=== PATIENT | male | born 1950 | race Caucasian/White ===

== ENCOUNTER 2019-09-03 14:05 | Emergency (ER) | payer MEDICARE ==
--- NOTE | 2019-09-03 14:28 | EDM.PDOC ---
ED HPI GENERAL MEDICAL PROBLEM - General Chief Complaint: Cardiovascular Problem Stated Complaint: CHEST PAIN BURNING FEELING Time Seen by Provider: 09/03/19 14:42 Source of Information: Reports: Patient, RN Notes Reviewed History Limitations: Reports: No Limitations - History of Present Illness INITIAL COMMENTS - FREE TEXT/NARRATIVE: 68-year-old gentleman presents emergency department a complaint of chest pain, he states the chest pain started about 9 this morning he describes as a burning sensation on the left side of his chest does not really have any shortness of breath no nausea vomiting no diaphoresis he has no heart history denies any trauma he did receive a shingles vaccine Left Chest Pain Score (Numeric/FACES): 5 - Related Data Allergies Allergy/AdvReac Type Severity Reaction Status Date / Time No Known Allergies Allergy Verified 09/03/19 14:23 Home Meds: Home Meds atorvaSTATin Calcium [Lipitor] 40 mg PO DAILY 09/03/19 [History] Past Medical History Cardiovascular History: Reports: High Cholesterol Social & Family History - Tobacco Use Smoking Status *Q: Never Smoker ED ROS GENERAL - Review of Systems Review Of Systems: See Below Constitutional: Reports: No Symptoms HEENT: Reports: No Symptoms Respiratory: Denies: Shortness of Breath Cardiovascular: Reports: Chest Pain GI/Abdominal: Reports: No Symptoms ED EXAM, GENERAL - Physical Exam Exam: See Below Exam Limited By: No Limitations General Appearance: Alert, WD/WN, No Apparent Distress Head: Atraumatic, Normocephalic Neck: Normal Inspection, Supple, Non-Tender, Full Range of Motion Respiratory/Chest: No Respiratory Distress, Lungs Clear, Normal Breath Sounds, No Accessory Muscle Use, Chest Non-Tender Cardiovascular: Regular Rate, Rhythm, No Murmur GI/Abdominal: Soft, Non-Tender Extremities: No Pedal Edema Course - Vital Signs Last Recorded V/S: Last Vital Signs Temp 98.3 F 09/03/19 14:34 Pulse 96 09/03/19 14:34 Resp 18 09/03/19 14:34 BP 156/75 H 09/03/19 14:46 Pulse Ox 98 09/03/19 14:34 - Orders/Labs/Meds Orders: Active Orders 24 hr Category Date Time Status Cardiac Monitoring [RC] .As Directed Care 09/03/19 14:41 Active Cardiac Monitoring [RC] STAT Care 09/03/19 15:21 Ordered Communication Order [RC] Per Unit Routine Care 09/03/19 15:21 Ordered EKG Documentation Completion [RC] ASDIRECTED Care 09/03/19 14:42 Active Peripheral IV Care [RC] . DIRECTED Care 09/03/19 14:42 Active Chest 1V Frontal [CR] Stat Exams 09/03/19 14:42 Taken INR,PT,PROTHROMBIN TIME [COAG] Stat Lab 09/03/19 15:21 Ordered PTT,PARTIAL THROMBOPLSTIN TIME [COAG] Stat Lab 09/03/19 15:21 Ordered Heparin Sodium/D5W [Heparin 25,000 Units in D5W 500 ML] Med 09/03/19 15:30 Ordered 25,000 units in 500 ml IV TITRATE Nitroglycerin [Nitrostat] Med 09/03/19 14:41 Active 0.4 mg SL Q5M PRN Sodium Chloride 0.9% [Saline Flush] Med 09/03/19 14:41 Active 10 ml FLUSH ASDIRECTED PRN Peripheral IV Insertion Adult [OM.PC] Stat Oth 09/03/19 14:41 Ordered Saline Lock Insert [OM.PC] Stat Oth 09/03/19 14:41 Ordered EKG 12 Lead [EK] Stat Ther 09/03/19 14:41 Ordered Medication Orders Heparin Sodium/Dextrose (Heparin 25,000 Units In D5w 500 Ml) 25,000 units in 500 mls @ 19.032 mls/hr IV TITRATE DERICK; Protocol Nitroglycerin (Nitrostat) 0.4 mg SL Q5M PRN PRN Reason: Chest Pain Stop: 09/04/19 14:41 Last Admin: 09/03/19 14:46 Dose: 0.4 mg Sodium Chloride (Saline Flush) 10 ml FLUSH ASDIRECTED PRN PRN Reason: Keep Vein Open Last Admin: 09/03/19 14:46 Dose: 10 ml Labs: Laboratory Tests 09/03/19 09/03/19 09/03/19 Range/Units 14:33 14:33 14:33 WBC 12.4 H (4.5-11.0) K/uL RBC 5.38 (4.30-5.90) M/uL Hgb 16.5 H (12.0-15.0) g/dL Hct 48.0 (40.0-54.0) % MCV 89 (80-98) fL MCH 31 (27-31) pg MCHC 34 (32-36) % Plt Count 229 (150-400) K/uL Neut % (Auto) 82 H (36-66) % Lymph % (Auto) 13 L (24-44) % [place] % (Auto) 5 (2-6) % Eos % (Auto) 0 L (2-4) % Baso % (Auto) 1 (0-1) % D-Dimer, Quantitative 264 (0.0-400.0) ng/mL Sodium 133 L (140-148) mmol/L Potassium 4.0 (3.6-5.2) mmol/L Chloride 96 L (100-108) mmol/L Carbon Dioxide 28 (21-32) mmol/L Anion Gap 13.0 (5.0-14.0) mmol/L BUN 16 (7-18) mg/dL Creatinine 1.3 (0.8-1.3) mg/dL Est Cr Clr Drug Dosing 53.35 mL/min Estimated GFR (MDRD) 55 L (>60) Glucose 354 H (74-106) mg/dL Calcium 9.3 (8.5-10.1) mg/dL Total Bilirubin 0.5 (0.2-1.0) mg/dL AST 33 (15-37) U/L ALT 55 (12-78) U/L Alkaline Phosphatase 69 (46-116) U/L Troponin I 0.638 H* (0.000-0.056) ng/mL Total Protein 7.9 (6.4-8.2) g/dL Albumin 4.1 (3.4-5.0) g/dL Globulin 3.8 H (2.3-3.5) g/dL Albumin/Globulin Ratio 1.1 L (1.2-2.2) Meds: Medications Generic Name Dose Route Start Last Admin Trade Name Freq PRN Reason Stop Dose Admin Heparin Sodium/Dextrose 25,000 units in 500 mls @ 19.032 mls/hr 09/03/19 15: 30 Heparin 25,000 Units In D5w 500 Ml IV TITRATE DERICK Protocol 12 UNITS/KG/HR Nitroglycerin 0.4 mg 09/03/19 14:41 09/03/19 14:46 Nitrostat SL 09/04/19 14:41 0.4 mg Q5M PRN Administration Chest Pain Sodium Chloride 10 ml 09/03/19 14:41 09/03/19 14:46 Saline Flush FLUSH 10 ml ASDIRECTED PRN Administration Keep Vein Open Discontinued Medications Generic Name Dose Route Start Last Admin Trade Name Freq PRN Reason Stop Dose Admin Aspirin 324 mg 09/03/19 14:41 09/03/19 14:46 Aspirin PO 09/03/19 14:42 324 mg ONETIME ONE Administration Heparin Sodium (Porcine) 4,000 units 09/03/19 15:21 09/03/19 15:29 Heparin Sodium IVPUSH 09/03/19 15:22 4,000 units ONETIME ONE Administration Ticagrelor 180 mg 09/03/19 15:21 Brilinta PO 09/03/19 15:22 ONETIME ONE Departure - Departure Time of Disposition: 15:36 Disposition: DC/Tfer to Acute Hospital 02 Reason for Transfer *Q: Primary PCI Indicated Condition: Fair Clinical Impression: Non-ST elevation myocardial infarction (NSTEMI) Referrals: Boogie Watts MD [Primary Care Provider] - Forms: ED Department Discharge Sepsis Event Note - Focused Exam Vital Signs: Vital Signs Temp Pulse Resp BP BP Pulse Ox 09/03/19 14:46 156/75 H 09/03/19 14:34 98.3 F 96 18 167/73 H 98 09/03/19 14:26 98.3 F 96 18 167/73 H 98 Date Exam was Performed: 09/03/19 Time Exam was Performed: 15:33 - My Orders Last 24 Hours: My Active Orders 09/03/19 14:41 Cardiac Monitoring [RC] .As Directed Nitroglycerin [Nitrostat] 0.4 mg SL Q5M PRN Sodium Chloride 0.9% [Saline Flush] 10 ml FLUSH ASDIRECTED PRN Peripheral IV Insertion Adult [OM.PC] Stat Saline Lock Insert [OM.PC] Stat EKG 12 Lead [EK] Stat 09/03/19 14:42 EKG Documentation Completion [RC] ASDIRECTED Peripheral IV Care [RC] . DIRECTED Chest 1V Frontal [CR] Stat 09/03/19 15:21 Cardiac Monitoring [RC] STAT Communication Order [RC] Per Unit Routine INR,PT,PROTHROMBIN TIME [COAG] Stat PTT,PARTIAL THROMBOPLSTIN TIME [COAG] Stat 09/03/19 15:30 Heparin Sodium/D5W [Heparin 25,000 Units in D5W 500 ML] 25,000 units in 500 ml IV TITRATE - Assessment/Plan Last 24 Hours: My Active Orders 09/03/19 14:41 Cardiac Monitoring [RC] .As Directed Nitroglycerin [Nitrostat] 0.4 mg SL Q5M PRN Sodium Chloride 0.9% [Saline Flush] 10 ml FLUSH ASDIRECTED PRN Peripheral IV Insertion Adult [OM.PC] Stat Saline Lock Insert [OM.PC] Stat EKG 12 Lead [EK] Stat 09/03/19 14:42 EKG Documentation Completion [RC] ASDIRECTED Peripheral IV Care [RC] . DIRECTED Chest 1V Frontal [CR] Stat 09/03/19 15:21 Cardiac Monitoring [RC] STAT Communication Order [RC] Per Unit Routine INR,PT,PROTHROMBIN TIME [COAG] Stat PTT,PARTIAL THROMBOPLSTIN TIME [COAG] Stat 09/03/19 15:30 Heparin Sodium/D5W [Heparin 25,000 Units in D5W 500 ML] 25,000 units in 500 ml IV TITRATE Plan: Assessment Acuity = acute Site and laterality = non-ST elevation myocardial infarction Etiology = probable underlying coronary artery disease with undiagnosed diabetes mellitus type 2 Manifestations = none Location of injury = Home Lab values = WBC elevated 12.4 consistent with leukocytosis, sodium low at 133 consistent with hyponatremia troponin elevated 0.638 consistent with non-ST elevation myocardial infarction glucose elevated 354 consistent hyperglycemia undiagnosed diabetes mellitus type 2 d-dimer normal at 264 chest x-ray reveals no acute process EKG demonstrates a sinus rhythm there is no ST elevations or depressions no T wave inversions Plan Call discussed case Dr. Rivers emergency room physician [facility] he kindly accepted the patient at 1530 thus far he has received 4 chewable aspirin baby, 1 nitro sublingual, 180 mg Brilinta, 4000 unit heparin bolus followed by heparin drip remains pain-free at this time will be transported via EMS ground This note was dictated using [employer]pper voice recognition software please call with any questions on syntax or grammar.
[2019-09-03] MEDS ORDERED: Aspirin 81 MG Tab.Chew PO ONE (14:41)
[2019-09-03] MEDS ORDERED: Nitroglycerin 0.4 MG Tab.SL SL PRN (14:41)
[2019-09-03] MEDS ORDERED: Sodium Chloride 0.9% 10 ML Syringe FLUSH PRN (14:41)
[2019-09-03] MEDS ORDERED: Ticagrelor 90 MG Tab PO ONE (15:21)
[2019-09-03] MEDS ORDERED: Heparin Sodium 5,000 Units/ML Vial IVPUSH ONE (15:21)
[2019-09-03] MEDS ORDERED: Heparin Sodium/D5W 25,000 UNITS/500 ML BAG IV SCH (15:30)
--- NOTE | 2019-09-04 09:58 | CR ---
CHEST: Portable 09/03/2019 3:06 PM CLINICAL HISTORY:Chest pain COMPARISON:None FINDINGS: The heart size, pulmonary vascularity and hilar structures are normal. No infiltrate effusion or pneumothorax is seen. There are atherosclerotic changes in the aorta.. Some mild interstitial prominence which is likely chronic. IMPRESSION: No acute cardiopulmonary process.
== END 2019-09-03 16:08 ==
LOC: JP.ED 14:05
DX: I21.4 Non-ST elevation (NSTEMI) myocardial infarction (principal); E78.00 Pure hypercholesterolemia, unspecified; Z79.899 Other long term (current) drug therapy
CPT/HCPCS: 36415; 71045; 80053; 84484; 85025; 85379; 85610; 85730; 93005; 93010; 96365; 99285; A9270; J1644

== ENCOUNTER 2020-08-01 09:42 | Emergency (ER) | payer MEDICARE ==
[2020-08-01] MEDS ORDERED: Nitroglycerin 0.4 MG Tab.SL SL ONE (09:51)
[2020-08-01] MEDS ORDERED: Aspirin 81 MG Tab.Chew PO ONE (09:51)
--- NOTE | 2020-08-01 10:00 | EDM.PDOC ---
ED HPI GENERAL MEDICAL PROBLEM - General Chief Complaint: Chest Pain Stated Complaint: CHEST PAIN Time Seen by Provider: 08/01/20 09:45 Source of Information: Reports: Patient History Limitations: Reports: No Limitations - History of Present Illness INITIAL COMMENTS - FREE TEXT/NARRATIVE: 69-year-old male has had subtle left-sided burning in his chest for the last 6 hours. Woke with this discomfort around 4 AM, mild diaphoresis but no shortness of breath, no nausea, but the pain has been persistent for the past 6 hours so he wanted it checked. He had bypass grafting less than 1 year ago. He still is having a small amount of burning sensation, it does not get worse with movement or breathing. No abdominal pain, peripheral edema or recent trauma. No cough or fever. Onset: Unknown/Unsure (Woke with symptoms at 4 AM) Duration: Hour(s): (At least 6 hours) Location: Reports: Chest (Left-sided) Improves with: Reports: None Worsens with: Reports: None Associated Symptoms: Reports: Diaphoresis (Some diaphoresis initially) Left Cheek Pain Score (Numeric/FACES): 3 - Related Data Allergies Allergy/AdvReac Type Severity Reaction Status Date / Time No Known Allergies Allergy Verified 08/01/20 09:50 Home Meds: Home Meds Aspirin 81 mg PO DAILY 08/01/20 [History] Clopidogrel [Plavix] 75 mg PO DAILY 08/01/20 [History] Ezetimibe 10 mg PO DAILY 08/01/20 [History] Metoprolol Tartrate [Lopressor] 50 mg PO BID 08/01/20 [History] atorvaSTATin [Lipitor] 80 mg PO BEDTIME 08/01/20 [History] lisinopriL [Lisinopril] 5 mg PO DAILY 08/01/20 [History] metFORMIN [Glucophage XR] 500 mg PO BIDMEALS 08/01/20 [History] Past Medical History HEENT History: Reports: Impaired Vision Cardiovascular History: Reports: High Cholesterol Musculoskeletal History: Reports: None Dermatologic History: Reports: Psoriasis - Infectious Disease History Infectious Disease History: Reports: Chicken Pox, Measles - Past Surgical History Head Surgeries/Procedures: Reports: None HEENT Surgical History: Reports: None Cardiovascular Surgical History: Reports: None Endocrine Surgical History: Reports: None Musculoskeletal Surgical History: Reports: Other (See Below) Dermatological Surgical History: Reports: None Social & Family History - Caffeine Use Caffeine Use: Reports: Coffee ED ROS GENERAL - Review of Systems Review Of Systems: See Below Constitutional: Denies: Fever, Chills, Malaise HEENT: Reports: No Symptoms Respiratory: Denies: Shortness of Breath Cardiovascular: Reports: Chest Pain (Burning sensation in the left chest). Denies: Palpitations GI/Abdominal: Reports: No Symptoms : Reports: No Symptoms Skin: Reports: Diaphoresis Neurological: Reports: No Symptoms Psychiatric: Reports: No Symptoms ED EXAM, GENERAL - Physical Exam Exam: See Below Exam Limited By: No Limitations General Appearance: Alert, No Apparent Distress Head: Atraumatic Respiratory/Chest: No Respiratory Distress, Lungs Clear, Other (I cannot reproduce the pain with palpation of the chest wall) Cardiovascular: Regular Rate, Rhythm, No Murmur. No: Extra Beats GI/Abdominal: Soft, Non-Tender Extremities: Normal Inspection. No: Pedal Edema Neurological: Alert, Oriented Psychiatric: Normal Affect, Normal Mood Skin Exam: Warm, Dry. No: Rash (No rash over painful area) #1 Interpretation EKG Date: 08/01/20 Time: 09:45 Rhythm: NSR P-Wave: Present QRS: Normal ST-T: Elevated (There is very minimal ST elevation in leads I and V2, other leads are normal. This was compared to an EKG done last year prior to his surgery and it is slightly different.) Comparison: Change From Previous EKG Course - Vital Signs Last Recorded V/S: Last Vital Signs Temp 97.8 F 08/01/20 09:45 Pulse 61 08/01/20 10:48 Resp 12 08/01/20 10:48 BP 109/55 L 08/01/20 10:48 Pulse Ox 98 08/01/20 10:48 - Orders/Labs/Meds Orders: Active Orders 24 hr Category Date Time Status EKG 12 Lead [EK] Routine Ther 08/01/20 09:51 Ordered Labs: Laboratory Tests 08/01/20 08/01/20 Range/Units 10:01 10:01 WBC 10.2 (4.5-11.0) K/uL RBC 4.45 (4.30-5.90) M/uL Hgb 13.8 D (12.0-15.0) g/dL Hct 42.1 (40.0-54.0) % MCV 95 (80-98) fL MCH 31 (27-31) pg MCHC 33 (32-36) % Plt Count 216 (150-400) K/uL Neut % (Auto) 74 H (36-66) % Lymph % (Auto) 14 L (24-44) % [place] % (Auto) 9 H (2-6) % Eos % (Auto) 2 (2-4) % Baso % (Auto) 1 (0-1) % Sodium 139 L (140-148) mmol/L Potassium 4.9 (3.6-5.2) mmol/L Chloride 105 (100-108) mmol/L Carbon Dioxide 27 (21-32) mmol/L Anion Gap 11.9 (5.0-14.0) mmol/L BUN 22 H (7-18) mg/dL Creatinine 1.1 (0.8-1.3) mg/dL Est Cr Clr Drug Dosing 62.18 mL/min Estimated GFR (MDRD) > 60 (>60) Glucose 217 H (74-106) mg/dL Calcium 9.2 (8.5-10.1) mg/dL Troponin I < 0.017 (0.000-0.056) ng/mL Meds: Medications Discontinued Medications Generic Name Dose Route Start Last Admin Trade Name Stephane PRN Reason Stop Dose Admin Aspirin 324 mg 08/01/20 09:51 08/01/20 09:57 Aspirin 81 Mg Tab.Chew PO 08/01/20 09:52 324 mg ONETIME ONE Administration Nitroglycerin 0.4 mg 08/01/20 09:51 08/01/20 09:58 Nitroglycerin 0.4 Mg Tab.Sl SL 08/01/20 09:52 0.4 mg ONETIME ONE Administration - Re-Assessments/Exams Free Text/Narrative Re-Assessment/Exam: 08/01/20 09:59 Patient was given 324 mg of chewable aspirin and 1 dose of sublingual nitroglycerin. CBC, BMP and troponin were obtained. 08/01/20 10:31 Patient that the sublingual nitroglycerin "might have helped" but he had such minimal symptoms at the time that it is hard to tell. His labs returned very reassuring, troponin is 0. He goes for a 1 mile walk every day with his , I am going to discharge him, and tell him to return if he goes for his walking he develops any pain or increased shortness of breath over baseline. I do not think this is cardiac source of pain Departure - Departure Time of Disposition: 11:00 Disposition: Home, Self-Care 01 Clinical Impression: Atypical chest pain - Discharge Information Instructions: Nonspecific Chest Pain, Adult, [id number] Referrals: PCP,None [Primary Care Provider] - Forms: ED Department Discharge Care Plan Goals: Continue your current medications, activity as tolerated and return anytime if symptoms recur, are persistent, or especially occur with activity. Sepsis Event Note (ED) - Evaluation Sepsis Screening Result: No Definite Risk - Focused Exam Vital Signs: Vital Signs Temp Pulse Resp BP BP Pulse Ox 08/01/20 10:48 61 12 109/55 L 98 08/01/20 10:33 61 15 109/55 L 97 08/01/20 10:15 62 12 106/57 L 97 08/01/20 10:05 66 16 105/58 L 96 08/01/20 09:58 134/59 L 08/01/20 09:45 97.8 F 64 16 134/59 L 100 - My Orders Last 24 Hours: My Active Orders 08/01/20 09:51 EKG 12 Lead [EK] Routine - Assessment/Plan Last 24 Hours: My Active Orders 08/01/20 09:51 EKG 12 Lead [EK] Routine
== END 2020-08-01 11:01 | disposition home or self-care (01) ==
LOC: JP.ED 09:42
DX: R07.89 Other chest pain (principal); E78.00 Pure hypercholesterolemia, unspecified; Z79.82 Long term (current) use of aspirin; Z79.02 Long term (current) use of antithrombotics/antiplatelets; Z79.899 Other long term (current) drug therapy
CPT/HCPCS: 36415; 80048; 84484; 85025; 93005; 99284; A9270; 99285